=== PATIENT | male | born 1960 | race Caucasian/White ===

== ENCOUNTER 2017-05-13 00:25 | Emergency (ER) | payer OTHER ==
[~2017-05-13] VITALS: Ht 175.3 cm; Wt 79.4 kg
[2017-05-13 00:28] VITALS: BP 112/75
== END 2017-05-13 01:23 | disposition home or self-care (01) ==
LOC: ER 00:25
DX: F10.20 Alcohol dependence, uncomplicated (principal); I10 Essential (primary) hypertension; G89.29 Other chronic pain; M54.9 Dorsalgia, unspecified; M79.606 Pain in leg, unspecified; F17.210 Nicotine dependence, cigarettes, uncomplicated